=== PATIENT | female | born 1955 | race Caucasian/White ===

== ENCOUNTER → 2018-01-23 | Outpatient (CLI) | payer OTHER ==
[2018-01-23 10:51] LABS: BASO # 0.1 x10^3/uL (0.0-0.2); BASO % 1 % (0-3); EOS # 0.1 x10^3/uL (0.0-0.7); EOS % 1 % (0-3); HEMOGLOBIN 15.1 g/dL (12.0-15.5); LYMPH # 1.2 x10^3/uL (1.0-4.8); LYMPH % 17 % (24-48); MEAN CORPUSCULAR HEMOGLOBIN 32 pg (25-35); MEAN CORPUSCULAR HGB CONC 34 g/dL (31-37); MEAN CORPUSCULAR VOLUME 93 fL (79-100); MONO # 0.5 x10^3/uL (0.0-1.1); MONO % 7 % (0-9); NEUT # 5.2 x10^3uL (1.8-7.7); NEUT % 75 % (31-73); PLATELET COUNT 380 x10^3/uL (140-400); RED BLOOD COUNT 4.75 x10^6/uL (3.50-5.40); RED CELL DISTRIBUTION WIDTH 13.4 % (11.5-14.5)
[2018-01-23 10:56] LABS: ALBUMIN 3.9 g/dL (3.4-5.0); C REACTIVE PROTEIN 14.6 mg/L (0-3.3); CALCIUM 9.3 mg/dL (8.5-10.1); CREATININE 0.8 mg/dL (0.6-1.0); GFR 72.2; POTASSIUM 3.6 mmol/L (3.5-5.1); TOTAL BILIRUBIN 0.5 mg/dL (0.2-1.0); TOTAL PROTEIN 7.8 g/dL (6.4-8.2)
[2018-01-23 11:57] LABS: SEDIMENTATION RATE 18 (0-25)
--- NOTE | 2018-01-23 12:46 | RAD ---
DATE: 01/23/2018 EXAM: MAMMO TONY JORDENG MIAAT, BREAST LEFT HISTORY: Left breast swelling and tenderness COMPARISON: None available This study was interpreted with the benefit of Computerized Aided Detection (CAD). Breast Density: HETERO The breast parenchyma is heterogenously dense, which could reduce sensitivity of mammography. Breast parenchyma level C. FINDINGS: 2-D and 3-D tomosynthesis imaging was performed in CC and MLO projections. No right breast mass or suspicious densities are seen. A couple of benign type calcifications are present on the right. Mildly prominent right axillary lymph nodes are noted, however, they demonstrate normal fatty deanna without definite evidence of pathologic infiltration. On the left, there is diffuse skin thickening. There are multiple abnormal nodules throughout the left breast. Just inferior to the midline these masses appear confluent. There are extensive pleomorphic microcalcifications in the left breast. These are most prominent inferiorly. The appearance suggests extensive infiltrating ductal carcinoma. Left axillary adenopathy is present. These nodes have lost their normal fatty hilum. The largest of these nodes measures 2.5 cm. Left breast ultrasound, 01/23/2018: The left breast is markedly abnormal. There is skin thickening and streaky edema. There are multiple hypoechoic masses. Some of these contain punctate echoes compatible with microcalcifications. In the retroareolar region these densities are ill-defined. The best defined discrete target for biopsy lies at the 6:00 location approximately 4 cm from the nipple, where there is a 3 cm solid mass with internal microcalcifications. We also examined the left axilla sonographically. There are several abnormal lymph nodes. They have lost their normal echogenic hilum. The largest of these measures 2.2 cm. IMPRESSION: 1. 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 2. Left axillary adenopathy presumably on a metastatic basis. 3. Ultrasound-guided left breast biopsy and left axillary lymph node biopsy is suggested for further evaluation, in addition to surgical consultation. Note: The cardiovascular radiologic technologist notified the patient of these findings at the time of the exam and she is aware of our recommendation for biopsy. The BI-RADS CATEGORY: 4 SUSPICIOUS ABNORMALITY- BIOPSY SHOULD BE CONSIDERED RECOMMENDED FOLLOW-UP: BIO BIOPSY RECOMMENDED PQRS compliance statement: Patient information was entered into a reminder system with a target due date for the next mammogram. Mammography is a sensitive method for finding small breast cancers, but it does not detect them all and is not a substitute for careful clinical examination. A negative mammogram does not negate a clinically suspicious finding and should not result in delay in biopsying a clinically suspicious abnormality. "Our facility is accredited by the [employer] Mammography Program."
== END | disposition home or self-care (01) ==
LOC: PMG 08:20
PROVIDERS: ATTEND Neuromusculoskeletal Medicine & OMM
DX: C50.512 Malignant neoplasm of lower-outer quadrant of left female breast (principal); R59.0 Localized enlarged lymph nodes
CPT/HCPCS: 36415; 76641; 77066; 80053; 85025; 85651; 86140; G0279; 77062

== ENCOUNTER → 2018-01-24 | Outpatient (CLI) | payer OTHER ==
[~2018-01-24] MED LIST: IOHEXOL 240 MG/ML 50ML VIAL. ONE; IOHEXOL 300 MG/ML 75 ML VIAL. IV ONE
--- NOTE | 2018-01-24 11:39 | RAD ---
CT CHEST ABD PELVIS W/CONTRAST Indication: Inflammatory breast cancer. Technique: Postcontrast CT imaging was performed of the chest, abdomen, pelvis, multiplanar reconstruction images submitted. Oral contrast was also given. One or more of the following individualized dose reduction techniques were utilized for this examination: 1. Automated exposure control 2. Adjustment of the mA and/or kV according to patient size 3. Use of iterative reconstruction technique. Contrast: 75 cc Omnipaque 300 Comparison: None CHEST: Findings: There is large lobulated left breast mass, also multiple adjacent soft tissue nodules as well as multiple enlarged left axillary angle masses. Largest left axillary node measures about 2 cm short axis dimension, also node extending slightly at the more medial margin of the left axillary region about 0.9 cm. There are some nodes of the left internal mammary chain. There are also enlarged left anterior mediastinal angle masses with the largest of these about 1.3 cm short axis dimension. There is also mild nodularity along the medial pleural surface left anterior mediastinum about 0.5 cm transverse by 2.8 cm AP by about 3.8 cm CC. There is other mild soft tissue thickening more inferiorly. There is also lymphadenopathy of the visualized inferior left neck, conglomerate angle mass located lateral to the left thyroid gland with the largest individual node about 1.7 cm short axis dimension. There is no pneumothorax. There is no right pleural effusion. There is small left pleural effusion dependently. Major airways are patent. Thoracic vertebral body stature and AP alignment are preserved. No significant bony destructive lesion is identified by CT. There is a small hypodense lesion of the left thyroid gland about 0.6 cm, also partially calcified lesion more inferiorly about 1 cm. IMPRESSION: 1. There is large lobulated left breast mass and also pathologically enlarged left axillary lymphadenopathy, lymphadenopathy of the visualized inferior left neck, left internal mammary chain, and the anterior mediastinum. There is also soft tissue thickening/nodularity along the pleural surface of the anterior medial left mediastinum and small left pleural effusion. 2. There are left thyroid lesions, partially calcified inferiorly. Abdomen and pelvis: FINDINGS: There are scattered hypodense foci of the liver, dominant and largest foci of the left lobe which have characteristics of cysts, largest of these about 5 cm. There are some smaller foci which are too small to accurately characterize such as 0.6 cm focus of the right lobe near the dome of the liver and at least 4 other small foci of the right lobe and 3 small foci of the left lobe. There is no adrenal nodularity. There is no focal abnormality of the spleen or pancreas. Gallbladder is present without obvious intraluminal abnormality by CT. Both kidneys enhance, no hydronephrosis. There is a tiny hypodense lesion of the mid right kidney too small to characterize 0.3 cm. Bowel is not dilated. There is no free air or free fluid. No significantly enlarged nodes are identified of the abdomen or the pelvis. Lumbar vertebral body stature and AP alignment are preserved. No bony destructive lesion is identified by CT. There is mild lumbar dextroscoliosis. IMPRESSION: 1. There are scattered hypodense foci of the liver, largest which have characteristics of cysts, other smaller foci too small to accurately characterize. There is no adrenal nodularity or significant lymphadenopathy. Electronically signed by: Neftali Fung MD (01/24/2018 11:35 AM) [id number]
== END | disposition home or self-care (01) ==
LOC: CT 09:18
PROVIDERS: ATTEND Neuromusculoskeletal Medicine & OMM
DX: K76.89 Other specified diseases of liver (principal); E04.1 Nontoxic single thyroid nodule; N63.20 Unspecified lump in the left breast, unspecified quadrant; J90 Pleural effusion, not elsewhere classified; R59.0 Localized enlarged lymph nodes; Z85.3 Personal history of malignant neoplasm of breast
CPT/HCPCS: 71260; 74177; Q9966; Q9967

== ENCOUNTER 2018-02-18 12:46 | Emergency (ER) | payer OTHER ==
[~2018-02-18] VITALS: Ht 157.5 cm; Wt 54.4 kg
[2018-02-18 12:46] VITALS: BP 157/88
[2018-02-18] MEDS ORDERED: HYDROcodone/APAP 5/325MG 1 TAB TABLET PO ONE (13:15)
[2018-02-18] MEDS ORDERED: predniSONE 10 MG TABLET PO ONE (13:15)
[2018-02-18] MEDS ORDERED: ONDANSETRON ODT 4 MG TAB.RAPDIS PO ONE (13:15)
[2018-02-18] MEDS ORDERED: PRED20TA PO (14:17)
[2018-02-18] MEDS ORDERED: HYDR-971 PO (14:17)
--- NOTE | 2018-02-18 14:25 | RAD ---
Examination: VENOUS UPPER EXTREMITY LEFT History: DX: Left arm pain and swelling- Left Breast Cancer with mets to nodes IMP: Negative for DVT Comparison/Correlation: None Findings: Left upper extremity venous duplex ultrasound exam was performed. Color Doppler, spectral Doppler, and grayscale imaging performed. Compression utilized. Left internal jugular, subclavian, brachial, radial, ulnar, cephalic, and basilic veins are patent with no thrombus identified. Normal color flow and spectral waveforms identified. Impression: No left upper extremity deep venous thrombus. Electronically signed by: Jerry Man MD (02/18/2018 2:22 PM) [facility]
--- NOTE | 2018-02-18 15:57 | PHYS DOC ---
Past History Past Medical History: Cancer Past Surgical History: Other Alcohol Use: None Drug Use: None Adult General Chief Complaint Chief Complaint: UPPER EXTREMITY SWELLING HPI HPI Patient is a 62-year-old female who is presenting with left arm swelling pain and numbness as well as increased weakness. 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 PET scan report reviewed by me from [facility] did not show any bony abnormalities. This was done last week. Pain is sharp radiates down to the fingers associated with the above findings ordered in nature minimal relief with tramadol Review of Systems Review of Systems Constitutional: Denies fever or chills [] Eyes: Denies change in visual acuity, redness, or eye pain [] HENT: Denies nasal congestion or sore throat [] Respiratory: Stable shortness of breath no changes there recently she does have known pleural effusion Cardiovascular: No additional information not addressed in HPI [] All other systems were reviewed and found to be within normal limits, except as documented in this note. Current Medications Current Medications Current Medications Medications (Trade) Dose Ordered Sig/Autumn Start Time Stop Time Status Last Admin Dose Admin Acetaminophen/ Hydrocodone Bitart (Lortab 5/325) 2 tab 1X ONCE 02/18/18 13:15 02/18/18 13:47 DC 02/18/18 13:25 2 TAB Ondansetron HCl (Zofran Odt) 4 mg 1X ONCE 02/18/18 13:15 02/18/18 13:47 DC 02/18/18 13:24 4 MG Prednisone (Prednisone) 50 mg 1X ONCE 02/18/18 13:15 02/18/18 13:47 DC 02/18/18 13:25 50 MG Allergies Allergies Allergies Coded Allergies Type Severity Reaction Last Updated Verified acetaminophen Allergy Mild itching 01/24/18 Yes hydrocodone Allergy Mild itching 01/24/18 Yes Physical Exam Physical Exam Constitutional: Well developed, well nourished, no acute distress, non-toxic appearance. [] HENT: Normocephalic, atraumatic, bilateral external ears normal, oropharynx moist, no oral exudates, nose normal. [] Breast exam: Camelia rnp did show significant inflammatory changes of the skin consistent with known inflammatory breast cancer per the patient's history. Erythema is noted inverted nipple is noted patient states this is how it normally looks. It is getting larger. Eyes: PERRLA, EOMI, conjunctiva normal, no discharge. [] Neck: Normal range of motion, no tenderness, supple, no stridor. [] Pulmonary: Normal respiratory effort no increased work of breathing no obvious chest wall trauma Abdomen: Bowel sounds normal, soft, no tenderness, no masses, no pulsatile masses. [] Skin: Warm, dry, no erythema, no rash. [] Extremities: Fullness and tenderness noted in the left axillary region Neurologic: Alert and oriented X 3, patient has decreased manager home healthcare strength as well as decreased flexion of the wrist as well as decreased interosseous strength of the left upper extremity in addition there is noted to be some atrophy of the hand muscles. Radial pulses intact there is mild swelling there is no erythema. Current Patient Data Vital Signs Vital Signs Date Time Temp Pulse Resp B/P (MAP) Pulse Ox O2 Delivery O2 Flow Rate FiO2 02/18/18 13:11 20 02/18/18 12:46 98.2 130 96 Room Air EKG EKG [] Radiology/Procedures Radiology/Procedures [] Course & Med Decision Making Course & Med Decision Making Pertinent Labs and Imaging studies reviewed. (See chart for details) []Ultrasound showed no DVT. 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 Trial anti-inflammatory for swelling seems reasonable prednisone was given she also has follow-up on Monday with her oncologist which I think will ultimately be the best thing for her to try to shrink this tumor. She has definite weakness but this point in time there does not appear to be in acute intervention other than her initiation of planned chemotherapy which hopefully according to her report will happen this week. Bao Disclaimer Bao Disclaimer This electronic medical record was generated, in whole or in part, using a voice recognition dictation system. Departure Departure: Impression: Primary Impression: Arm pain Disposition: HOME, SELF-CARE Condition: STABLE Patient Instructions: Weakness, [id number] Additional Instructions: PLEASE SEE YOUR ONCOLOGIST SCHEDULED ON MONDAY. Scripts Prednisone (PREDNISONE) 20 Mg Tablet 1 TAB PO DAILY, #11 TAB 2 TABS PO DAILY X THREE DAYS, THEN 1 TAB PO DAILY X THREE DAYS, THEN 0.5 TABS PO DAILY X THREE DAYS. Prov: JEANNIE BARNEY MD 02/18/18 Hydrocodone Bit/Acetaminophen (NORCO 5-325 TABLET) 1 Each Tablet 1 TAB PO PRN Q6HRS PRN for PAIN, #30 TAB 0 Refills Prov: JEANNIE BARNEY MD 02/18/18 JEANNIE BARNEY MD Feb 18, 2018 15:57
== END 2018-02-18 14:36 | disposition home or self-care (01) ==
LOC: ER 12:46
DX: M79.602 Pain in left arm (principal); R22.32 Localized swelling, mass and lump, left upper limb; R06.02 Shortness of breath; Z88.5 Allergy status to narcotic agent; Z88.6 Allergy status to analgesic agent
CPT/HCPCS: 93971; 99284; J7512; Q0162

== ENCOUNTER → 2019-03-27 | Outpatient (CLI) | payer MEDICARE ==
[~2019-03-27] MED LIST changes: +HYDR-3165 PO; -IOHEXOL 240 MG/ML 50ML VIAL. ONE; -IOHEXOL 300 MG/ML 75 ML VIAL. IV ONE; +PRED20TA PO
[2019-03-27 09:50] LABS: ALBUMIN 3.7 g/dL (3.4-5.0); CALCIUM 9.3 mg/dL (8.5-10.1); CREATININE 0.8 mg/dL (0.6-1.0); POTASSIUM 3.7 mmol/L (3.5-5.1); TOTAL BILIRUBIN 0.3 mg/dL (0.2-1.0); TOTAL PROTEIN 7.5 g/dL (6.4-8.2)
[2019-03-27 10:22] LABS: BASO # 0.1 x10^3/uL (0.0-0.2); BASO % 1 % (0-3); EOS # 0.3 x10^3/uL (0.0-0.7); EOS % 6 % (0-3); HEMATOCRIT 43.1 % (36.0-47.0); HEMOGLOBIN 14.3 g/dL (12.0-15.5); LYMPH # 2.4 x10^3/uL (1.0-4.8); LYMPH % 45 % (24-48); MEAN CORPUSCULAR HEMOGLOBIN 30 pg (25-35); MEAN CORPUSCULAR HGB CONC 33 g/dL (31-37); MEAN CORPUSCULAR VOLUME 91 fL (79-100); MONO # 0.5 x10^3/uL (0.0-1.1); MONO % 10 % (0-9); NEUT # 2.1 x10^3uL (1.8-7.7); NEUT % 39 % (31-73); PLATELET COUNT 311 x10^3/uL (140-400); RED BLOOD COUNT 4.73 x10^6/uL (3.50-5.40); RED CELL DISTRIBUTION WIDTH 13.3 % (11.5-14.5); WHITE BLOOD COUNT 5.5 x10^3/uL (4.0-11.0)
== END | disposition home or self-care (01) ==
LOC: LAB 09:04
PROVIDERS: ATTEND Internal Medicine Hematology & Oncology
DX: C50.011 Malignant neoplasm of nipple and areola, right female breast (principal); C79.51 Secondary malignant neoplasm of bone
CPT/HCPCS: 36415; 80053; 85025